=== PATIENT | male | born 1985 | race Caucasian/White ===

== ENCOUNTER 2024-10-10 16:42 | Emergency (ER) | payer OTHER ==
[~2024-10-10] VITALS: Ht 182.9 cm; Wt 88.5 kg
[2024-10-10 16:53] VITALS: BP 118/72; PULSE 76; RESP 18; TEMP 36.6; O2SAT 100
[2024-10-10] MEDS ORDERED: DICYCLOMINE 10 MG/5 ML ORAL SYR PO STA (17:09)
[2024-10-10] MEDS: ONDANSETRON 4MG ODT PO STA (17:53)
[2024-10-10] MEDS: MAGNESIUM/ALUMINUM HYDROXIDE/SIMETHICONE 30ML UDC PO STA (17:53)
[2024-10-10] MEDS: DICYCLOMINE HCL 10MG CAPSULE PO NR (17:54)
[2024-10-10] MEDS: FAMOTIDINE 20MG TABLET PO ONE (17:54)
[2024-10-10] MEDS: KETOROLAC 30MG/ML VIAL IM ONE (17:58)
[2024-10-10 18:07] LABS: HEMATOCRIT. 36.8 % (42.0-52.0); HEMOGLOBIN. 12.5 g/dL (14.0-18.0); MEAN CORPUSCULAR HEMOGLOBIN 28.1 pg (28.0-32.0); MEAN CORPUSCULAR HGB CONC 33.9 g/dL (31.0-37.0); MEAN CORPUSCULAR VOLUME 82.9 fL (80.0-94.0); MEAN PLATELET VOLUME 9.4 fl (7.4-10.4); PLATELET 204 x1000/uL (130-400); RED BLOOD CELL COUNT 4.44 mill/uL (4.7-6.1); RED CELL DISTRIBUTION WIDTH 15.3 % (11.6-14.6)
[2024-10-10 18:10] LABS: DIFFERENTIAL COMMENT 1
[2024-10-10 18:14] LABS: CHLORIDE 103 mEq/L (98-107); POTASSIUM 4.5 mEq/L (3.5-5.1); SODIUM 136 mEq/L (136-145)
[2024-10-10 18:15] LABS: CARBON DIOXIDE 28 mEq/L (21-32)
[2024-10-10 18:20] LABS: CREATININE 0.8 mg/dL (0.6-1.3)
[2024-10-10 18:21] LABS: ETHANOL BLOOD < 10 mg/dL (<10); GLUCOSE 105 mg/dL (70-105); UREA NITROGEN BLOOD 12 mg/dL (9-23)
[2024-10-10 18:22] LABS: ALANINE AMINOTRANSFERASE 27 IU/L (10-49); ALBUMIN 4.2 g/dL (3.2-4.8); ASPARTATE AMINOTRANSFERASE 41 IU/L (<34)
[2024-10-10 18:23] LABS: BILIRUBIN DIRECT < 0.1 mg/dL (<=3.0); BILIRUBIN TOTAL 0.3 mg/dL (0.1-1.0); PROTEIN TOTAL 7.3 g/dL (6.0-8.3)
[2024-10-10 18:35] LABS: PROTHROMBIN TIME 10.5 sec (9.6-11.0)
[2024-10-10 18:58] LABS: PLATELET ESTIMATE NORMAL
[2024-10-10] MEDS ORDERED: FAMO-135 MT (19:41)
[2024-10-10 21:16] LABS: TROPONIN I HIGH SENSITIVITY < 4 ng/L (3.0-53)
== END 2024-10-10 21:30 ==
LOC: ER 16:42
DX: D18.00 Hemangioma unspecified site (principal); K29.70 Gastritis, unspecified, without bleeding; Z98.890 Other specified postprocedural states
CPT/HCPCS: 80076; 80048; 80320; 83690; 85025; 85610; 84484; 36415; 71045; 74176; 76700; 93005; 96372; 99285; Q0162; J1885; G0480